=== PATIENT | female | born 1980 | race African-American/Black ===

== ENCOUNTER 2018-12-25 10:16 | Emergency (ER) | payer OTHER | END 2018-12-25 11:09 | disposition home or self-care (01) | LOC: FTE 10:16 | DX: H92.01 Otalgia, right ear (principal) | CPT/HCPCS: 99283; Z7502 ==

== ENCOUNTER 2019-02-20 03:11 | Emergency (ER) | payer OTHER ==
[2019-02-20 05:19] LABS: URINE BLOOD (Dip) POC 3+ (NEGATIVE); URINE GLUCOSE (Dip) POC Negative (NEGATIVE); URINE KETONES (Dip) POC Trace (NEGATIVE); URINE LEUKOCYTE EST (Dip) POC 1+ (NEGATIVE); URINE NITRITE (Dip) POC Negative (NEGATIVE); URINE TOTAL PROTEIN POC 3+ (NEGATIVE)
[2019-02-20] MEDS: CEPHALEXIN 500 MG CAP PO (06:06)
[2019-02-20] MEDS: PHENAZOPYRIDINE 100 MG TAB PO (06:06)
== END 2019-02-20 06:10 | disposition home or self-care (01) ==
LOC: FTE 03:11
DX: N30.90 Cystitis, unspecified without hematuria (principal)
CPT/HCPCS: 81003; 81025; 99283